=== PATIENT | male | born 1950 | race Hispanic/Latino ===

== ENCOUNTER 2024-02-17 09:56 | Inpatient (IN) | payer MEDICARE ==
[~2024-02-17] VITALS: Ht 170.2 cm; Wt 120.2 kg
[2024-02-17 10:02] VITALS: RESP 16; TEMP 98.4
[2024-02-17 10:32] LABS: BILIRUBIN,URINE NEGATIVE (NEGATIVE); CLARITY,URINE CLOUDY (CLEAR); COLOR,URINE RED (YELLOW); GLUCOSE, URINE 500 (NEGATIVE); KETONES,URINE NEGATIVE (NEGATIVE); LEUKOCYTE ESTERASE ,URINE NEGATIVE (NEGATIVE); NITRITE,URINE NEGATIVE (NEGATIVE); PH,URINE 6.5 (5 - 7); PROTEIN,URINE DIPSTICK >=300 (NEGATIVE); URINE UROBILINOGEN 1 mg/dL (0.2 - 1)
[2024-02-17 10:42] LABS: BACTERIA,URINE FEW /HPF; EPITHELIAL CELLS,URINE MODERATE /LPF; RBC,URINE >50 /HPF (0-5)
[2024-02-17 10:53] LABS: BASOPHILS # (AUTO) 0.1 (0.0-0.1); BASOPHILS % 0.5 % (0.0-1.0); EOSINOPHILS # (AUTO) 0.5 (0.0-0.4); HEMATOCRIT 46.2 % (38.2-49.6); HEMOGLOBIN 14.4 g/dL (14.0-18.0); LYMPHOCYTES # (AUTO) 2.3 (1.0-3.2); LYMPHOCYTES % 20.5 % (18.0-39.1); MEAN CORPUSCULAR HGB CONC 31.2 g/dL (31-35); MEAN CORPUSCULAR VOLUME 93.1 fL (81-99); MONOCYTES # (AUTO) 0.7 (0.2-0.8); MONOCYTES % 5.9 % (4.4-11.3); NEUTROPHILS # (AUTO) 7.6 (2.1-6.9); NEUTROPHILS % 68.4 % (38.7-80.0); PLATELET COUNT 290 x10e3/uL (140-360); RED BLOOD COUNT 4.96 x10e6/uL (4.3-5.7); RED CELL DISTRIBUTION WIDTH 13.5 % (11.7-14.4); WHITE BLOOD COUNT 11.17 x10e3/uL (4.8-10.8)
[2024-02-17 11:06] LABS: INR 0.91; PROTHROMBIN TIME 12.8 seconds (11.9-14.5)
[2024-02-17 11:07] LABS: PARTIAL THROMBOPLASTIN TIME 32.6 seconds (23.8-35.5)
[2024-02-17 11:16] LABS: ALBUMIN 3.9 g/dL (3.5-5.0); ALBUMIN/GLOBULIN RATIO 0.8 (0.8-2.0); ANION GAP 16.7 mmol/L (8-16); BILIRUBIN,TOTAL 0.4 mg/dL (0.2-1.2); CALCIUM 11.2 mg/dL (8.4-10.2); CREATININE, SERUM 1.92 mg/dL (0.72-1.25); POTASSIUM 4.7 mmol/L (3.5-5.1)
[2024-02-17] MEDS: SODIUM CHLORIDE 0.9% 500ML 500 ML IV ONE (11:28)
[2024-02-17] MEDS ORDERED: IOPAMIDOL 370 MG/ML 100 ML INFUS..BTL INJ ONE (11:34)
[2024-02-17] MEDS ORDERED: SODIUM CHLORIDE 0.9% 250ML 250 ML ONE (11:34)
[2024-02-17] MEDS: SODIUM CHLORIDE 0.9% 1000ML 1,000 ML IV SCH (15:39)
[2024-02-17] MEDS: ONDANSETRON HCL INJ 2MG/ML 2ML 2 MG/ML VIAL IV PRN (15:40)
[2024-02-17 16:00] VITALS: PULSE 85
[2024-02-17 17:10] VITALS: BP 146/73; PULSE 88; PULSE 98; RESP 18; TEMP 98; O2SAT 97; O2SAT 98
[2024-02-17] MEDS ORDERED: FAMOTIDINE 20 MG TAB PO PRN (18:00)
[2024-02-17] MEDS ORDERED: MELATONIN 5 MG TABLET PO PRN (18:00)
[2024-02-17] MEDS ORDERED: ONDANSETRON HCL 4 MG ORAL DISINTEGRATING TAB PO PRN (18:00)
[2024-02-17] MEDS ORDERED: DEXTROSE 50% SYRINGE 50 ML IV PRN (18:00)
[2024-02-17] MEDS: AMLODIPINE BESYLATE 10 MG TAB PO SCH (19:01)
[2024-02-17] MEDS: CARVEDILOL 12.5 MG TAB PO SCH (19:02)
[2024-02-17] MEDS: LOSARTAN POTASSIUM 100 MG TAB PO SCH (19:02)
[2024-02-17 19:32] VITALS: BP 146/73; PULSE 88; RESP 18; TEMP 98; O2SAT 98
[2024-02-17 20:00] VITALS: BP 133/83; PULSE 76; RESP 18; TEMP 97.5; O2SAT 96
[2024-02-17] MEDS: INSULIN LISPRO 100 UNIT/1 ML 3ML VIAL SQ SCH (21:00)
[2024-02-17] MEDS: INSULIN GLARGINE 100 UNITS/ML VIAL SQ SCH (21:00)
[2024-02-17] MEDS: TAMSULOSIN HCL 0.4 MG CAP PO SCH (21:08)
[2024-02-17] MEDS: PRAVASTATIN 20 MG TAB PO SCH (21:09)
[2024-02-18] VITALS: BP 135/74; PULSE 69; RESP 20; TEMP 96.9; O2SAT 97
[2024-02-18 05:49] LABS: BASOPHILS # (AUTO) 0.1 (0.0-0.1); BASOPHILS % 0.6 % (0.0-1.0); EOSINOPHILS # (AUTO) 0.4 (0.0-0.4); EOSINOPHILS % 3.8 % (0.0-6.0); HEMATOCRIT 40.7 % (38.2-49.6); HEMOGLOBIN 13.2 g/dL (14.0-18.0); LYMPHOCYTES # (AUTO) 2.1 (1.0-3.2); LYMPHOCYTES % 22.1 % (18.0-39.1); MEAN CORPUSCULAR HEMOGLOBIN 29.5 pg (28-32); MEAN CORPUSCULAR HGB CONC 32.4 g/dL (31-35); MEAN CORPUSCULAR VOLUME 91.1 fL (81-99); MONOCYTES # (AUTO) 0.7 (0.2-0.8); MONOCYTES % 7.1 % (4.4-11.3); NEUTROPHILS # (AUTO) 6.3 (2.1-6.9); NEUTROPHILS % 65.7 % (38.7-80.0); PLATELET COUNT 289 x10e3/uL (140-360); RED BLOOD COUNT 4.47 x10e6/uL (4.3-5.7); RED CELL DISTRIBUTION WIDTH 13.6 % (11.7-14.4); WHITE BLOOD COUNT 9.67 x10e3/uL (4.8-10.8)
[2024-02-18 06:20] LABS: ALBUMIN 3.5 g/dL (3.5-5.0); ALBUMIN/GLOBULIN RATIO 0.8 (0.8-2.0); ANION GAP 15.9 mmol/L (8-16); BILIRUBIN,TOTAL 0.3 mg/dL (0.2-1.2); CREATININE, SERUM 1.77 mg/dL (0.72-1.25); POTASSIUM 4.9 mmol/L (3.5-5.1); TOTAL PROTEIN 8.1 g/dL (6.5-8.1)
[2024-02-18 07:45] VITALS: BP 135/74; PULSE 69; RESP 20; TEMP 96.9; O2SAT 97
[2024-02-18 07:52] VITALS: BP 147/80; PULSE 82; RESP 16; TEMP 98.2; O2SAT 100
[2024-02-18] MEDS ORDERED: HYDRALAZINE HCL 20 MG/ML VIAL IV PRN (08:15)
[2024-02-18] MEDS: INSULIN LISPRO 100 UNIT/1 ML 3ML VIAL SQ SCH (08:15)
[2024-02-18] MEDS ORDERED: FENTANYL CITRATE/PF 100MCG/2 ML INJ ONE (09:04)
[2024-02-18] MEDS ORDERED: PROPOFOL IV EMULSION 10 MG/ML 20 ML VIAL ONE (09:04)
[2024-02-18] MEDS ORDERED: LIDOCAINE HCL 2% LOCAL INJ 5 ML SDV VIAL INJ ONE (09:04)
[2024-02-18] MEDS ORDERED: METOCLOPRAMIDE HCL 10 MG/2ML VIAL ONE (09:23)
[2024-02-18] MEDS ORDERED: ONDANSETRON HCL INJ 2MG/ML 2ML 2 MG/ML VIAL ONE (09:23)
[2024-02-18] MEDS ORDERED: ACETAMINOPHEN 1000 MG/100 ML 100 ML IV ONE (09:35)
[2024-02-18] MEDS ORDERED: PHENAZOPYRIDINE HCL 100 MG TAB PO PRN (10:00)
[2024-02-18] MEDS ORDERED: PHENAZOPYRIDINE HCL 100 MG TAB ONE ×2 (10:29→10:33)
[2024-02-18 11:49] VITALS: BP 139/76; PULSE 81; RESP 17; TEMP 97.8; O2SAT 97
[2024-02-18] MEDS: TRAMADOL HCL 50 MG TAB PO PRN (11:52)
[2024-02-18 15:50] VITALS: BP 152/83; PULSE 83; RESP 19; TEMP 97.8; O2SAT 96
[2024-02-18 20:00] VITALS: BP 124/70; PULSE 77; RESP 18; TEMP 97.5; O2SAT 100
[2024-02-18] MEDS: TAMSULOSIN HCL 0.4 MG CAP PO SCH (21:13)
[2024-02-19] VITALS (7 sets, daily range): BP systolic 138–149; BP diastolic 73–84; PULSE 85–102; RESP 17–20; TEMP 97.4–97.9; O2SAT 95–98
[2024-02-19 05:54] LABS: BASOPHILS # (AUTO) 0.1 (0.0-0.1); BASOPHILS % 0.4 % (0.0-1.0); EOSINOPHILS # (AUTO) 0.3 (0.0-0.4); EOSINOPHILS % 2.5 % (0.0-6.0); HEMATOCRIT 36.6 % (38.2-49.6); HEMOGLOBIN 11.1 g/dL (14.0-18.0); LYMPHOCYTES # (AUTO) 1.4 (1.0-3.2); LYMPHOCYTES % 11.3 % (18.0-39.1); MEAN CORPUSCULAR HEMOGLOBIN 29.1 pg (28-32); MEAN CORPUSCULAR HGB CONC 30.3 g/dL (31-35); MEAN CORPUSCULAR VOLUME 95.8 fL (81-99); MONOCYTES # (AUTO) 0.9 (0.2-0.8); MONOCYTES % 7.3 % (4.4-11.3); NEUTROPHILS # (AUTO) 9.3 (2.1-6.9); NEUTROPHILS % 77.9 % (38.7-80.0); PLATELET COUNT 229 x10e3/uL (140-360); RED BLOOD COUNT 3.82 x10e6/uL (4.3-5.7); RED CELL DISTRIBUTION WIDTH 13.5 % (11.7-14.4); WHITE BLOOD COUNT 11.98 x10e3/uL (4.8-10.8)
[2024-02-19 06:28] LABS: ALBUMIN 3.1 g/dL (3.5-5.0); ALBUMIN/GLOBULIN RATIO 0.8 (0.8-2.0); ANION GAP 12.2 mmol/L (8-16); BILIRUBIN,TOTAL 0.2 mg/dL (0.2-1.2); CALCIUM 9.5 mg/dL (8.4-10.2); CREATININE, SERUM 1.84 mg/dL (0.72-1.25); POTASSIUM 4.2 mmol/L (3.5-5.1); TOTAL PROTEIN 6.9 g/dL (6.5-8.1)
[2024-02-19] MEDS ORDERED: BISACODYL 10 MG SUPP PR PRN (10:30)
[2024-02-19] MEDS: BISACODYL 10 MG SUPP PR ONE (11:52)
[2024-02-19] MEDS: ACETAMINOPHEN 325 MG TAB PO PRN (16:00)
[2024-02-19] MEDS: SENNA-S TABLET PO SCH (17:08)
[2024-02-20 05:09] LABS: CALCIUM 9.3 mg/dL (8.6-10.2)
== END 2024-02-19 18:35 | disposition home or self-care (01) | DRG 660 ==
LOC: ER 10:18 → ERHOLD 14:32 → MED/SURG3 16:30
PROVIDERS: ADMIT Internal Medicine; ATTEND Internal Medicine
PROC: 0T9B70Z Drainage of Bladder with Drainage Device, Via Natural or Artificial Opening (ICD-10-PCS; 2024-02-18)
PROC: BT141ZZ Fluoroscopy of Kidneys, Ureters and Bladder using Low Osmolar Contrast (ICD-10-PCS; 2024-02-18)
PROC: 0T778DZ Dilation of Left Ureter with Intraluminal Device, Via Natural or Artificial Opening Endoscopic (ICD-10-PCS; principal; 2024-02-18 09:12)
DX: N13.1 Hydronephrosis with ureteral stricture, not elsewhere classified (principal); Z68.41 Body mass index [BMI] 40.0-44.9, adult; E66.01 Morbid (severe) obesity due to excess calories; N28.1 Cyst of kidney, acquired; K70.30 Alcoholic cirrhosis of liver without ascites; E11.22 Type 2 diabetes mellitus with diabetic chronic kidney disease; I12.9 Hypertensive chronic kidney disease with stage 1 through stage 4 chronic kidney disease, or unspecified chronic kidney disease; N18.30 Chronic kidney disease, stage 3 unspecified; R31.29 Other microscopic hematuria; I35.0 Nonrheumatic aortic (valve) stenosis; G47.33 Obstructive sleep apnea (adult) (pediatric); N47.1 Phimosis; K80.20 Calculus of gallbladder without cholecystitis without obstruction; K76.9 Liver disease, unspecified; N43.3 Hydrocele, unspecified; N23 Unspecified renal colic; M48.061 Spinal stenosis, lumbar region without neurogenic claudication; E78.5 Hyperlipidemia, unspecified; D35.02 Benign neoplasm of left adrenal gland; Z88.5 Allergy status to narcotic agent; Z87.891 Personal history of nicotine dependence; Z83.3 Family history of diabetes mellitus; Z82.49 Family history of ischemic heart disease and other diseases of the circulatory system
CPT/HCPCS: 36415; 74178; 74420; 76700; 80053; 81001; 82948; 83970; 84550; 85025; 85610; 85730; 87040; 87086; 93005; 99284; C2617; J0696; J2003; J2405; J2765; J7030; J7040; J7050; Q9967

== ENCOUNTER → 2024-04-11 | Day surgery (SDC) | payer MEDICARE ==
[2024-04-10 09:19] LABS: BASOPHILS % 0.4 % (0.0-1.0); EOSINOPHILS # (AUTO) 0.5 (0.0-0.4); EOSINOPHILS % 4.9 % (0.0-6.0); HEMATOCRIT 36.5 % (38.2-49.6); HEMOGLOBIN 11.9 g/dL (14.0-18.0); LYMPHOCYTES # (AUTO) 1.7 (1.0-3.2); LYMPHOCYTES % 17.3 % (18.0-39.1); MEAN CORPUSCULAR HEMOGLOBIN 29.3 pg (28-32); MEAN CORPUSCULAR HGB CONC 32.6 g/dL (31-35); MEAN CORPUSCULAR VOLUME 89.9 fL (81-99); MONOCYTES # (AUTO) 0.7 (0.2-0.8); MONOCYTES % 7.5 % (4.4-11.3); NEUTROPHILS # (AUTO) 6.7 (2.1-6.9); NEUTROPHILS % 69.3 % (38.7-80.0); PLATELET COUNT 242 x10e3/uL (140-360); RED BLOOD COUNT 4.06 x10e6/uL (4.3-5.7); RED CELL DISTRIBUTION WIDTH 14.9 % (11.7-14.4); WHITE BLOOD COUNT 9.71 x10e3/uL (4.8-10.8)
[2024-04-10 09:53] LABS: ANION GAP 14.6 mmol/L (8-16); CALCIUM 10.7 mg/dL (8.4-10.2); CREATININE, SERUM 1.83 mg/dL (0.72-1.25); POTASSIUM 4.6 mmol/L (3.5-5.1)
[~2024-04-11] MED LIST: ACETAMINOPHEN 1000 MG/100 ML 100 ML IV ONE; AMLODIPINE BESY10 MG PO; CARVEDILOL12.5 MG PO; DEXAMETHASONE SOD PHOS INJ 4 MG/ML SDV ONE; EPHEDRINE SULFATE INJ 50 MG/ML VIAL ONE; FARXIGA10 MG PO; FENTANYL CITRATE/PF 100MCG/2 ML INJ ONE; FLOMAX0.4 MG PO; FUROSEMIDE40 MG PO; HUMALOG KW200 UNIT/1 SC; LANTUS 3ML100 UNITS/ SC; LEVOFLOXACIN250 MG PO; LIDOCAINE HCL 2% LOCAL INJ 5 ML SDV VIAL INJ ONE; LOSARTAN POTAS100 MG PO; METFORMIN HCL500 M2 PO; ONDANSETRON HCL INJ 2MG/ML 2ML 2 MG/ML VIAL ONE; PRAVASTATIN SOD80 MG PO; PROPOFOL IV EMULSION 10 MG/ML 20 ML VIAL ONE; SEVOFLURANE INHAL SOLN 250 ML PEN BTL ONE; SODIUM CHLORIDE 0.9% INJ 10 ML VIAL ONE; TRULICITY3 MG/0.5 M SC
[2024-04-11] MEDS: LACTATED RINGER'S 1,000 ML ONE (07:13)
[2024-04-11] MEDS: CEFTRIAXONE 1 GM VIAL ONE (07:14)
[2024-04-11] MEDS: GENTAMICIN 80MG/NS 100 ML 200 ML IV ONE (07:14)
[2024-04-11] MEDS: PHENAZOPYRIDINE HCL 100 MG TAB ONE (12:08)
[2024-04-11 12:44] VITALS: BP 139/78; PULSE 77; RESP 17; O2SAT 95
== END | disposition home or self-care (01) ==
LOC: OR 06:27
PROVIDERS: ATTEND Urology
DX: N20.1 Calculus of ureter (principal); Z46.6 Encounter for fitting and adjustment of urinary device; N35.819 Other urethral stricture, male, unspecified site; N47.1 Phimosis; N40.1 Benign prostatic hyperplasia with lower urinary tract symptoms; N13.8 Other obstructive and reflux uropathy; R33.8 Other retention of urine; R39.14 Feeling of incomplete bladder emptying; R35.1 Nocturia; G47.33 Obstructive sleep apnea (adult) (pediatric); E11.9 Type 2 diabetes mellitus without complications; I25.10 Atherosclerotic heart disease of native coronary artery without angina pectoris; I10 Essential (primary) hypertension; E78.5 Hyperlipidemia, unspecified; I45.10 Unspecified right bundle-branch block; K74.60 Unspecified cirrhosis of liver; E66.9 Obesity, unspecified; D44.10 Neoplasm of uncertain behavior of unspecified adrenal gland; Z88.6 Allergy status to analgesic agent; Z01.812 Encounter for preprocedural laboratory examination; Z01.818 Encounter for other preprocedural examination; Z79.82 Long term (current) use of aspirin; Z79.85 Long-term (current) use of injectable non-insulin antidiabetic drugs; Z79.4 Long term (current) use of insulin; Z79.84 Long term (current) use of oral hypoglycemic drugs; Z79.899 Other long term (current) drug therapy; Z68.41 Body mass index [BMI] 40.0-44.9, adult; Z80.42 Family history of malignant neoplasm of prostate; Z80.52 Family history of malignant neoplasm of bladder; Z80.51 Family history of malignant neoplasm of kidney; Z84.1 Family history of disorders of kidney and ureter
CPT/HCPCS: 36415; 52356; 71046; 74018; 74420; 80048; 84550; 85025; 87086; C1766; C1769; C2617; J0131; J0696; J1100; J1580; J2003; J2405; J2704; J3010; J7121

== ENCOUNTER 2024-07-08 22:31 | Emergency (ER) | payer MEDICARE ==
[~2024-07-08] VITALS: Ht 170.2 cm; Wt 113.4 kg
[~2024-07-08 22:31] MED LIST changes: -ACETAMINOPHEN 1000 MG/100 ML 100 ML IV ONE; -DEXAMETHASONE SOD PHOS INJ 4 MG/ML SDV ONE; -EPHEDRINE SULFATE INJ 50 MG/ML VIAL ONE; -FENTANYL CITRATE/PF 100MCG/2 ML INJ ONE; -LIDOCAINE HCL 2% LOCAL INJ 5 ML SDV VIAL INJ ONE; -ONDANSETRON HCL INJ 2MG/ML 2ML 2 MG/ML VIAL ONE; -PROPOFOL IV EMULSION 10 MG/ML 20 ML VIAL ONE; -SEVOFLURANE INHAL SOLN 250 ML PEN BTL ONE; -SODIUM CHLORIDE 0.9% INJ 10 ML VIAL ONE
[2024-07-08 22:36] VITALS: PULSE 105; RESP 20; TEMP 97.9; O2SAT 96
[2024-07-08] MEDS: OXYMETAZOLINE HCL 0.05% NAS 1 SPRAY BTL ONE (23:16)
[2024-07-09] MEDS ORDERED: AMOX TR-K CLV1 EAC2 PO (01:11)
[2024-07-09] MEDS ORDERED: ULTRAM 50MG50 MG PO (01:11)
== END 2024-07-09 01:30 | disposition home or self-care (01) ==
LOC: ER 22:38
DX: R04.0 Epistaxis (principal); R53.1 Weakness; I12.9 Hypertensive chronic kidney disease with stage 1 through stage 4 chronic kidney disease, or unspecified chronic kidney disease; E11.22 Type 2 diabetes mellitus with diabetic chronic kidney disease; N18.9 Chronic kidney disease, unspecified; E78.5 Hyperlipidemia, unspecified
CPT/HCPCS: 99283

== ENCOUNTER 2024-08-03 08:33 | Emergency (ER) | payer MEDICARE ==
[~2024-08-03] VITALS: Ht 170.2 cm; Wt 110.7 kg
[2024-08-03 08:33] VITALS: TEMP 98
[~2024-08-03 08:33] MED LIST changes: +AMOX TR-K CLV1 EAC2 PO; +ULTRAM 50MG50 MG PO; +VITAMIN D PO
[2024-08-03 09:42] LABS: BASOPHILS # (AUTO) 0.1 (0.0-0.1); BASOPHILS % 0.7 % (0.0-1.0); EOSINOPHILS # (AUTO) 0.5 (0.0-0.4); EOSINOPHILS % 4.4 % (0.0-6.0); HEMATOCRIT 33.9 % (38.2-49.6); HEMOGLOBIN 10.6 g/dL (14.0-18.0); LYMPHOCYTES % 16.9 % (18.0-39.1); MEAN CORPUSCULAR HEMOGLOBIN 29.4 pg (28-32); MEAN CORPUSCULAR HGB CONC 31.3 g/dL (31-35); MEAN CORPUSCULAR VOLUME 93.9 fL (81-99); MONOCYTES # (AUTO) 0.5 (0.2-0.8); MONOCYTES % 4.7 % (4.4-11.3); NEUTROPHILS # (AUTO) 8.4 (2.1-6.9); NEUTROPHILS % 72.6 % (38.7-80.0); PLATELET COUNT 325 x10e3/uL (140-360); RED BLOOD COUNT 3.61 x10e6/uL (4.3-5.7); RED CELL DISTRIBUTION WIDTH 13.2 % (11.7-14.4); WHITE BLOOD COUNT 11.59 x10e3/uL (4.8-10.8)
[2024-08-03 10:11] VITALS: PULSE 81
[2024-08-03] MEDS: FUROSEMIDE INJ 10 MG/ML 4 ML VIAL IV ONE (10:19)
[2024-08-03 10:20] LABS: ALBUMIN 3.3 g/dL (3.5-5.0); ALBUMIN/GLOBULIN RATIO 0.7 (0.8-2.0); ANION GAP 16.1 mmol/L (8-16); BILIRUBIN,TOTAL 0.2 mg/dL (0.2-1.2); CALCIUM 10.3 mg/dL (8.4-10.2); CREATININE, SERUM 2.15 mg/dL (0.72-1.25); POTASSIUM 5.1 mmol/L (3.5-5.1); TOTAL PROTEIN 8.1 g/dL (6.5-8.1)
[2024-08-03 10:28] LABS: TROPONIN I 0.011 ng/mL (0-0.300)
[2024-08-03] MEDS ORDERED: FUROSEMIDE40 MG PO (10:49)
[2024-08-03 10:54] VITALS: RESP 16; O2SAT 95
== END 2024-08-03 11:05 | disposition home or self-care (01) ==
LOC: ER 08:39
DX: R06.02 Shortness of breath (principal); J81.1 Chronic pulmonary edema; I12.9 Hypertensive chronic kidney disease with stage 1 through stage 4 chronic kidney disease, or unspecified chronic kidney disease; E11.22 Type 2 diabetes mellitus with diabetic chronic kidney disease; E11.65 Type 2 diabetes mellitus with hyperglycemia; N18.9 Chronic kidney disease, unspecified; E78.5 Hyperlipidemia, unspecified; R94.31 Abnormal electrocardiogram [ECG] [EKG]
CPT/HCPCS: 36415; 71045; 80053; 83880; 84484; 85025; 93005; 99284; J1938

== ENCOUNTER 2024-10-03 13:02 | Inpatient (IN) | payer MEDICARE ==
[~2024-10-03] VITALS: Ht 170.2 cm; Wt 108.9 kg
[2024-10-03 13:45] LABS: BASOPHILS % 0.4 % (0.0-1.0); EOSINOPHILS % 5.8 % (0.0-6.0); LYMPHOCYTES % 21.0 % (18.0-39.1); MONOCYTES % 8.8 % (4.4-11.3); NEUTROPHILS % 63.5 % (38.7-80.0); RED CELL DISTRIBUTION WIDTH 13.5 % (11.7-14.4)
[2024-10-03 13:47] VITALS: TEMP 99.2
[2024-10-03 14:06] LABS: EST GLOMERULAR FILTRATION RATE 30.0 ML/MIN (>=60)
[2024-10-03] MEDS ORDERED: IOPAMIDOL 370 MG/ML 100 ML INFUS..BTL INJ ONE (14:18)
[2024-10-03] MEDS: SODIUM CHLORIDE 0.9% 1000ML 1,000 ML IV STA (15:11)
[2024-10-03 17:09] LABS: LEUKOCYTE ESTERASE ,URINE SMALL (NEGATIVE); PROTEIN,URINE DIPSTICK >=300 (NEGATIVE); URINE UROBILINOGEN 0.2 mg/dL (0.2 - 1)
[2024-10-03 17:19] LABS: WBC,URINE (MAN) 21-50 /HPF (0-5)
[2024-10-03 17:33] VITALS: PULSE 93; RESP 20
[2024-10-03 17:51] VITALS: BP 142/60; PULSE 97; RESP 21; TEMP 98.5; O2SAT 99
[2024-10-03] MEDS: CARVEDILOL 12.5 MG TAB PO SCH (18:41)
[2024-10-03] MEDS: BENZOCAINE 20% SPR 60 ML CAN MT STA (18:42)
[2024-10-03] MEDS: SODIUM CHLORIDE 0.9% 1000ML 1,000 ML IV SCH (18:42)
[2024-10-03] MEDS: TRAMADOL HCL 50 MG TAB PO PRN (18:42)
[2024-10-03 20:00] VITALS: BP 158/73; PULSE 88; RESP 20; TEMP 98.2; O2SAT 94
[2024-10-03] MEDS: PRAVASTATIN 20 MG TAB PO SCH (20:25)
[2024-10-03] MEDS: INSULIN LISPRO 100 UNIT/1 ML 3ML VIAL SQ SCH (20:25)
[2024-10-03] MEDS: INSULIN GLARGINE 100 UNITS/ML VIAL SQ SCH (20:26)
[2024-10-04] VITALS: BP 143/71; PULSE 76; RESP 20; TEMP 97.8; O2SAT 97
[2024-10-04 06:55] LABS: BASOPHILS % 0.4 % (0.0-1.0); EOSINOPHILS % 5.2 % (0.0-6.0); LYMPHOCYTES % 14.7 % (18.0-39.1); MONOCYTES % 9.3 % (4.4-11.3); NEUTROPHILS % 70.1 % (38.7-80.0); RED CELL DISTRIBUTION WIDTH 13.4 % (11.7-14.4)
[2024-10-04 07:08] LABS: EST GLOMERULAR FILTRATION RATE 43.0 ML/MIN (>=60)
[2024-10-04 08:43] VITALS: BP 119/65; PULSE 65; RESP 20; TEMP 97.6; O2SAT 96
[2024-10-04 08:45] VITALS: BP 119/65; PULSE 65; RESP 20; TEMP 97.6; O2SAT 96
[2024-10-04] MEDS ORDERED: DEXTROSE 50% SYRINGE 50 ML IV PRN (10:30)
[2024-10-04] MEDS ORDERED: ONDANSETRON HCL 4 MG ORAL DISINTEGRATING TAB PO PRN (10:30)
[2024-10-04] MEDS: LOSARTAN POTASSIUM 100 MG TAB PO SCH (10:53)
[2024-10-04] MEDS: AMLODIPINE BESYLATE 10 MG TAB PO SCH (10:53)
[2024-10-04] MEDS: ONDANSETRON HCL INJ 2MG/ML 2ML 2 MG/ML VIAL IV PRN (10:56)
[2024-10-04] MEDS: INSULIN REGULAR, HUMAN 100 UNIT/1 ML SQ SCH (11:04)
[2024-10-04 11:58] LABS: % IRON SATURATION 17.0 % (15-50)
[2024-10-04 12:18] VITALS: BP 126/63; PULSE 80; RESP 20; TEMP 97.7; O2SAT 96
[2024-10-04] MEDS ORDERED: NEOMYCIN/POLYMYXIN/BACITRACIN 15 GM TUBE TOP PRN (16:30)
[2024-10-04 16:34] VITALS: BP 121/65; PULSE 77; RESP 20; TEMP 97.6; O2SAT 98
[2024-10-04 20:00] VITALS: BP 153/67; PULSE 65; RESP 18; TEMP 97.2; O2SAT 96
[2024-10-04] MEDS: POLYETHYLENE GLYCOL 3350 17 GM PACK PO PRN (20:37)
[2024-10-05] VITALS (8 sets, daily range): BP systolic 132–155; BP diastolic 64–75; PULSE 67–77; RESP 18–20; TEMP 97.3–98; O2SAT 95–98
[2024-10-05 00:56] LABS: EST GLOMERULAR FILTRATION RATE 45.0 ML/MIN (>=60)
[2024-10-05 07:35] LABS: BASOPHILS % 0.4 % (0.0-1.0); EOSINOPHILS % 6.9 % (0.0-6.0); LYMPHOCYTES % 13.9 % (18.0-39.1); MONOCYTES % 7.3 % (4.4-11.3); NEUTROPHILS % 71.1 % (38.7-80.0); RED CELL DISTRIBUTION WIDTH 13.3 % (11.7-14.4)
[2024-10-05 08:33] LABS: EST GLOMERULAR FILTRATION RATE 43.0 ML/MIN (>=60)
[2024-10-05] MEDS: LACTULOSE SYRUP 20 GM/30 ML UDC PO ONE (11:14)
[2024-10-05 16:28] LABS: EST GLOMERULAR FILTRATION RATE 41.0 ML/MIN (>=60)
[2024-10-05 16:43] LABS: FOLATE (REF LAB) 7.5 ng/mL (>3.0)
[2024-10-06] VITALS (7 sets, daily range): BP systolic 132–167; BP diastolic 69–93; PULSE 81–92; RESP 18–20; TEMP 97.7–98.7; O2SAT 94–96
[2024-10-06] MEDS: BISACODYL 10 MG SUPP PR ONE (10:18)
[2024-10-06] MEDS: MAGNESIUM HYDROXIDE 30 ML UDC PO ONE (10:18)
[2024-10-06 10:48] LABS: EST GLOMERULAR FILTRATION RATE 49.0 ML/MIN (>=60)
[2024-10-06] MEDS ORDERED: FLOMAX0.4 MG PO (13:32)
[2024-10-06] MEDS ORDERED: CEFDINIR300 MG PO (13:32)
[2024-10-06] MEDS ORDERED: ENULOSE10 GM/15 M PO (13:35)
[2024-10-07 10:13] LABS: VITAMIN B1 109.6 nmol/L (66.5-200.0)
[2024-10-14] MEDS ORDERED: ULTRAM 50MG50 MG PO (17:01)
[2024-10-14] MEDS ORDERED: CEFDINIR300 MG PO (17:02)
[2024-10-14] MEDS ORDERED: HUMALOG MI100 UNIT/2 SQ ×2 (17:03)
[2024-10-14] MEDS ORDERED: LANTUS 3ML100 UNITS/ (17:04)
[2024-10-14] MEDS ORDERED: TYLENOL325 MG PO (17:04)
== END 2024-10-06 18:50 | disposition home or self-care (01) | DRG 683 ==
LOC: ER 13:05 → ERHOLD 15:19 → MED/SURG2 17:58
PROVIDERS: ADMIT Family Medicine Adult Medicine; ATTEND Family Medicine Adult Medicine
DX: N17.9 Acute kidney failure, unspecified (principal); I13.0 Hypertensive heart and chronic kidney disease with heart failure and stage 1 through stage 4 chronic kidney disease, or unspecified chronic kidney disease; I50.30 Unspecified diastolic (congestive) heart failure; N13.8 Other obstructive and reflux uropathy; E78.5 Hyperlipidemia, unspecified; E11.22 Type 2 diabetes mellitus with diabetic chronic kidney disease; G47.33 Obstructive sleep apnea (adult) (pediatric); N40.1 Benign prostatic hyperplasia with lower urinary tract symptoms; R33.8 Other retention of urine; Z96.0 Presence of urogenital implants; N32.0 Bladder-neck obstruction; N13.6 Pyonephrosis; E66.01 Morbid (severe) obesity due to excess calories; E11.65 Type 2 diabetes mellitus with hyperglycemia; D64.9 Anemia, unspecified; E27.9 Disorder of adrenal gland, unspecified; K74.60 Unspecified cirrhosis of liver; N18.4 Chronic kidney disease, stage 4 (severe); N35.919 Unspecified urethral stricture, male, unspecified site; I87.2 Venous insufficiency (chronic) (peripheral); R31.9 Hematuria, unspecified; Z68.37 Body mass index [BMI] 37.0-37.9, adult; Z87.442 Personal history of urinary calculi; Z88.5 Allergy status to narcotic agent; Z79.84 Long term (current) use of oral hypoglycemic drugs; Z79.85 Long-term (current) use of injectable non-insulin antidiabetic drugs; Z87.891 Personal history of nicotine dependence
CPT/HCPCS: 36415; 51700; 74177; 80048; 80053; 81001; 82140; 82550; 82607; 82728; 82746; 82948; 83540; 83690; 83880; 84425; 84466; 84484; 85025; 87086; 93005; 93306; 99283; J2405; J2543; J7030; Q9967

== ENCOUNTER → 2024-10-17 | Day surgery (SDC) | payer MEDICARE ==
[2024-10-15 09:37] LABS: BASOPHILS % 0.5 % (0.0-1.0); EOSINOPHILS % 5.8 % (0.0-6.0); LYMPHOCYTES % 19.6 % (18.0-39.1); MONOCYTES % 6.6 % (4.4-11.3); NEUTROPHILS % 67.0 % (38.7-80.0); RED CELL DISTRIBUTION WIDTH 13.3 % (11.7-14.4)
[2024-10-15 10:05] LABS: EST GLOMERULAR FILTRATION RATE 48.0 ML/MIN (>=60)
[~2024-10-17] MED LIST changes: +ACETAMINOPHEN 1000 MG/100 ML 100 ML IV ONE; +CEFDINIR300 MG PO; +DEXAMETHASONE SOD PHOS INJ 4 MG/ML SDV ONE; +ENULOSE10 GM/15 M PO; +FENTANYL CITRATE/PF 100MCG/2 ML INJ ONE; +HUMALOG MI100 UNIT/2 SQ; +LANTUS 3ML100 UNITS/; +LIDOCAINE HCL 2% LOCAL INJ 5 ML SDV VIAL INJ ONE; +ONDANSETRON HCL INJ 2MG/ML 2ML 2 MG/ML VIAL ONE; +PROPOFOL IV EMULSION 10 MG/ML 20 ML VIAL ONE; +SEVOFLURANE INHAL SOLN 250 ML PEN BTL ONE; +TYLENOL325 MG PO
[2024-10-17] MEDS: CEFTRIAXONE 1 GM VIAL ONE (08:29)
[2024-10-17] MEDS: SODIUM CHLORIDE 0.9% 1000ML 1,000 ML ONE (08:30)
[2024-10-17] MEDS: GENTAMICIN 80MG/NS 100 ML 200 ML IV ONE (08:30)
[2024-10-17] MEDS: PHENAZOPYRIDINE HCL 100 MG TAB ONE (12:20)
[2024-10-17 14:55] VITALS: BP 138/76; PULSE 70; RESP 16; O2SAT 97
== END | disposition home or self-care (01) ==
LOC: OR 07:51
PROVIDERS: ATTEND Urology
DX: Z46.6 Encounter for fitting and adjustment of urinary device (principal); Z87.442 Personal history of urinary calculi; N48.83 Acquired buried penis; N28.89 Other specified disorders of kidney and ureter; E11.22 Type 2 diabetes mellitus with diabetic chronic kidney disease; I13.0 Hypertensive heart and chronic kidney disease with heart failure and stage 1 through stage 4 chronic kidney disease, or unspecified chronic kidney disease; N18.9 Chronic kidney disease, unspecified; I50.9 Heart failure, unspecified; N40.1 Benign prostatic hyperplasia with lower urinary tract symptoms; R80.9 Proteinuria, unspecified; R81 Glycosuria; R35.1 Nocturia; R39.14 Feeling of incomplete bladder emptying; G47.33 Obstructive sleep apnea (adult) (pediatric); I45.10 Unspecified right bundle-branch block; I38 Endocarditis, valve unspecified; K74.60 Unspecified cirrhosis of liver; E66.01 Morbid (severe) obesity due to excess calories; Z88.6 Allergy status to analgesic agent; Z01.812 Encounter for preprocedural laboratory examination; Z01.818 Encounter for other preprocedural examination; Z79.82 Long term (current) use of aspirin; Z79.4 Long term (current) use of insulin; Z79.85 Long-term (current) use of injectable non-insulin antidiabetic drugs; Z79.899 Other long term (current) drug therapy; Z68.41 Body mass index [BMI] 40.0-44.9, adult; Z84.1 Family history of disorders of kidney and ureter
CPT/HCPCS: 36415 ×2; 52351; 71046; 74018; 74420; 80048; 82948; 84550; 85025; 87086; C1758; J0131; J0696; J1100; J1580; J2003; J2405; J2704; J3010; J7030